=== PATIENT | male | born 1980 | race African-American/Black ===

== ENCOUNTER 2021-03-26 18:35 | Emergency (ER) | payer OTHER ==
[~2021-03-26] VITALS: Ht 167.6 cm; Wt 79.4 kg
[2021-03-26] MEDS ORDERED: PREZCOBIX 8001 EACH PO (19:24)
[2021-03-26] MEDS ORDERED: DESCOVY 200-251 EACH PO (19:24)
[2021-03-26] MEDS ORDERED: PERCOCET 5-3251 EACH PO ×2 (20:36→20:38)
[2021-03-26] MEDS ORDERED: DOXYCYCLINE 10100 MG PO ×2 (20:36→20:38)
[2021-03-26 20:38] VITALS: BP 146/89
== END 2021-03-26 21:00 | disposition home or self-care (01) ==
LOC: ER 18:35
DX: L02.214 Cutaneous abscess of groin (principal); Z21 Asymptomatic human immunodeficiency virus [HIV] infection status; Z79.899 Other long term (current) drug therapy